=== PATIENT | male | born 1985 | race Caucasian/White ===

== ENCOUNTER 2025-02-28 12:35 | Outpatient (CLI) | payer OTHER, SELFPAY ==
--- NOTE | ~2025-02-28 | XR_ITS ---
XR lumbar spine 2-3V Indication: LBP, RT SIDED SCIATICA pain x 3 weeks, no inj, no surg Comparison: None Findings: The vertebral heights are intact. No fracture or subluxation. The disc heights are intact. Soft tissues unremarkable Impression: No acute abnormality. Reviewed, dictated and finalized at location P. Impression: No acute abnormality.
== END 2025-02-28 12:36 | disposition home or self-care (01) ==
LOC: GOSHIMG 12:37
PROVIDERS: PCP Physician Assistant; Visit Provider Physician Assistant
DX: M54.41 Lumbago with sciatica, right side (principal)
CPT/HCPCS: 72100

== ENCOUNTER 2025-05-07 00:28 | Emergency (ER) | payer OTHER, SELFPAY ==
--- OUTSIDE RECORDS SUMMARY | 2025-05-03 03:45 | XMS_ITS | Continuity of Care Document ---
Author Organization [facility] Address [address] [place] [address] Phone Care Team Providers Care Supervisor [employer] Name Role Phone Christos PT,MPT,ATC, Charly Unavailable Unavai lable Procedures Procedure Date Progress Note Therapeutic Activities Therapeutic Exercise Manual Therapy Therapeutic Activities Therapeutic Exercise Hot or Cold Pack Therapeutic Activities Therapeutic Exercise Therapeutic Activities Therapeutic Exercise Manual Therapy PT Evaluation Moderate Complexity Therapeutic Activities Neuromuscular Re-Ed Therapeutic Activities Neuromuscular Re-Ed Therapeutic Activities Neuromuscular Re-Ed PT Evaluation Moderate Complexity Therapeutic Activities Neuromuscular Re-Ed Advance Directives Directive Yes / No Effective Date File Name No Information Encounters Encounter Description Practice Location Reason(s) For Visit Diagnoses Date Provider Providers Copied on Encounter [facility], [place], [place], [id number], tel:[phone] [place] No Information Christos [place] , [place], [place]. [facility], [place], [place], [id number], tel:[phone] [place] No Information 5 Christos [place] , [place], [place]. Referring Provider: Mandy Juliannedaviseileen, [address], [place], [address]. tel:[phone] [facility], [address], [place], [place], [id number], [place] tel:[phone] Maple No Information 5 Jaswant Pepe. . Referring Provider: Mandy Whitakerdaviseileen, [address], [place], [address]. tel:[phone] [facility], [address], [place], [place], [id number], [place] tel:[phone] [place] No Information 5 Christos Parks. , [place], [place]. Referring Provider: Mandy Julianneuzma, [facility] [facility] [address], [place], [address]. tel:[phone] [facility], [address], [place], [place], [address], [place] tel:[phone] [place] No Information 5 Christos Parks. , [place], [place]. Referring Provider: Mandy Juliannedaviseileen, [address], [place], [address]. tel:[phone] [facility], [place], [place], [address], [place] tel:[phone] [place] No Information 5 Christos Parks. , [place], [place]. Referring Provider: Mandy Juliannedaviseileen, [address], [place], [address]. tel:[phone] [facility], [place], [place], [address], [place] tel:[phone] [place] No Information 5 Christos [place] , [place], [place]. Referring Provider: [facility]. [facility], [place], [place], [address], tel:[phone] [place] No Information 5 Christos ParksMT[address] [facility]. Referring Provider: [facility]. [facility], [place], [place], [id number], tel:[phone] [place] No Information 5 Christ[place], [place], . Referring Provider: [facility]. Family History Family Member Type Diagnosis Age At Onset No Information Payers Payer name Insurance type Covered alliance party [facility] CI [id number] Social History Type Description Quantity Date Captured Comments Sex Male Smoking Status No Information Chief Complaint And Reason For Visit No Information Reason For Referral Reason For Referral No Information History Of Present Illness Encounter Date Complaint History Of Prese nt Illness No Information Functional Status Date Functional Assessmen t No Information Instructions Date Instruction Additional Infor mation No Information Assessments Type Assessment Date No Information Patient Care Teams Name Effective Dates (start - stop) Status Members No Information
[2025-05-07] VITALS (10 sets, daily range): BP systolic 113–155; BP diastolic 50–88; PULSE 56–96; RESP 12–21; TEMP 36.6–37.2; O2SAT 98–100
--- NOTE | ~2025-05-07 | MR_ITS ---
EXAMINATION: MR lumbar spine wo con DATE: 05/07/2025 10:27 INDICATION: Lower lumbar pain. TECHNIQUE: Magnetic resonance imaging (MRI) of the lumbar spine was performed without intravenous contrast. Sequences included sagittal T2-weighted FSE, sagittal T2-weighted FS FSE, sagittal T1-weighted FSE, and axial T2-weighted FSE. COMPARISON: Lumbar spine radiographs 02/28/2025 FINDINGS: There is 12 degrees levoscoliosis of lumbar spine. Vertebral body heights are normal. There is mildly decreased disc height at L4-L5 and severely decreased disc height at L5-S1. The distal spinal cord signal intensity is normal. The conus medullaris is at L1. The following disc levels are spe cifically discussed: L1-L2: The disc does not extend beyond the endplate margin. There is no facet joint osteoarthritis. There is no neural foraminal stenosis. There is no central canal stenosis. L2-L3: The disc does not extend beyond the endplate margin. There is mild left facet joint osteoarthritis. There is no neural foraminal stenosis. There is no central canal stenosis. L3-L4: The disc does not extend beyond the endplate margin. There is mild bilateral facet joint osteoarthritis. There is no neural foraminal stenosis. There is no central canal stenosis. L4-L5: The disc is bulging with superimposed central extrusion. There is mild bilateral facet joint osteoarthritis. There is moderate right and mild left neural foraminal stenosis. There is mild central canal stenosis. There is severe stenosis of right lateral recess and left lateral recess. There is mass effect on the bilateral L5 nerve roots in the lateral recesses. L5-S1: The disc is bulging with superimposed left central extrusion. There is mild right and moderate left facet joint osteoarthritis. There is mild right and moderate left neural foraminal stenosis. There is mild central canal stenosis. IMPRESSION: 1. Severe lower lumbar spondylosis. Reviewed, dictated and finalized at location E. 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
--- NOTE | 2025-05-07 02:42 | ED_ITS ---
HPI - Back Pain/Injury General Chief Complaint: Back Pain/Injury <Javier Brunagopal DO Cruz Last Filed: 05/07/25 07:30> Stated Complaint: low back pain <Javier Brunagopal DO Cruz Last Filed: 05/07/25 07:30> Time Seen by Provider: 05/07/25 02:30 <Javier Diaz - Last Filed: 05/07/25 07:30> Source: patient <Javier Mcfarlandgopal DO Cruz Last Filed: 05/07/25 07:30> Mode of arrival: wheelchair <Javier Mcfarlandgopal - Last Filed: 05/07/25 07:30> Limitations: no limitations <Javier Velardeneo - Last Filed: 05/07/25 07:30> History of Present Illness HPI Narrative: This is a 39-year-old male with history of sciatica who presents to the ED for back pain. Patient states that for the past few months he has been dealing with worsening left lower back pain. He has been seeing his PCP for this and has been getting physical therapy with some mild improvements. However, today he did have worsening symptoms. He does not any specific injury. Denies any new numbness or tingling. Denies saddle anesthesia, bowel incontinence. He does note that he had difficulty starting his urine stream this evening but he does feel like he was able to fully empty. <Javier Diaz DO Cruz Last Filed: 05/07/25 07:30> Related Data Allergies/Adverse Reactions: Allergies Allergy/AdvReac Type Severity Reaction Status Date / Time No Known Allergies Allergy Verified 05/07/25 00:28 <Javier Diaz - Last Filed: 05/07/25 07:30> Review of Systems Review of Systems: Gen.: Denies fevers or chills Eyes: Denies eye pain or visual change ENT: Denies congestion Respiratory: Denies shortness of breath or cough CV: Denies chest pain or palpitations GI: Denies abdominal pain nausea, emesis or diarrhea denies burning, urgency, frequency or hematuria Musculoskeletal: As per HPI Neuro: Denies numbness, tingling, weakness or focal weakness Skin: Denies rash Except as documented, all other systems reviewed and negative <Javier Diaz DO - Last Filed: 05/07/25 07:30> Exam Narrative: APPEARANCE: No acute distress, nontoxic, resting in bed EYES: EOMI HEENT: Normocephalic, atraumatic, OMM RESPIRATORY: No respiratory distress Clear to auscultation bilaterally with no rhonchi wheezing or rales. CARDIOVASCULAR: Regular rate and rhythm without murmurs rubs or gallops. ABDOMINAL: Soft, nontender, nondistended, no rebound or guarding MUSCULOSKELETAl: Moves all extremities. Tenderness to palpation to the left PIIS. No midline lumbar tenderness to palpation, step-off deformities. NEURO: Awake and alert. Following commands, speech normal, no focal deficits SKIN:: Warm, dry. No rashes lesions or abrasions PSYCHIATRIC: Normal affect/mood, <DO Anthony Gordillo Last Filed: 05/07/25 07:30> Course Course Emergency Course: I assumed care of this patient at shift change with pending MRI and disposition. Patient denies for additional lab dose of pain medication which I did before his MRI. I did review the MRI results with the patient. He states he is feeling slightly better. Recommended him to follow with neurosurgery on outpatient basis. Meanwhile take steroids and pain medication as prescribed. <Riley Fitzpatrick MD - Last Filed: 05/07/25 11:17> Vital Signs Vital signs: Vital Signs Temperature 37.2 C 05/07/25 00:55 Pulse Rate 96 05/07/25 00:55 Respiratory Rate 16 05/07/25 00:55 Blood Pressure 151/50 H 05/07/25 00:55 Pulse Oximetry 98 05/07/25 00:55 Oxygen Delivery Room Air 05/07/25 00:55 Temperature 36.6 C 05/07/25 10:55 Pulse Rate 79 05/07/25 10:55 Respiratory Rate 16 05/07/25 10:55 Blood Pressure 113/76 05/07/25 10:55 Pulse Oximetry 100 05/07/25 10:55 Oxygen Delivery Room Air 05/07/25 00:55 <DO Anthony Gordillo Last Filed: 05/07/25 07:30> Vital Signs Temperature 37.2 C 05/07/25 00:55 Pulse Rate 96 05/07/25 00:55 Respiratory Rate 16 05/07/25 00:55 Blood Pressure 151/50 H 05/07/25 00:55 Pulse Oximetry 98 05/07/25 00:55 Oxygen Delivery Room Air 05/07/25 00:55 Temperature 36.6 C 05/07/25 10:55 Pulse Rate 79 05/07/25 10:55 Respiratory Rate 16 05/07/25 10:55 Blood Pressure 113/76 05/07/25 10:55 Pulse Oximetry 100 05/07/25 10:55 Oxygen Delivery Room Air 05/07/25 00:55 <Riley Fitzpatrick MD - Last Filed: 05/07/25 11:17> [facility] MDM Narrative Medical decision making narrative: 39-year-old male Presenting for low back patient. On initial evaluation patient was in mild distress, afebrile, hemodynamic stable. Differentials include but are not limited to: Sciatica, cauda equina, epidural abscess, musculoskeletal strain Notable exam findings: Tenderness to the left lower lumbar paraspinal region. No paresthesias, no muscle weakness Postvoid residual was obtained and it was about 175. This could be concerning for a possible cauda equina. Patient was given Toradol, Lidoderm, [place] and had some mild improvement of her symptoms here and he was given morphine subsequently. Patient will require an MRI for cauda equina rule out. Patient was signed out to Dr. Fitzpatrick pending MRI results. <DO Anthony Gordillo Last Filed: 05/07/25 07:30> Differential Diagnosis Differential Diagnosis: Sciatica, cauda equina, epidural abscess, musculoskeletal strain <Javier Diaz DO - Last Filed: 05/07/25 07:30> Imaging Data Radiologist's impression: ITS Impressions Lumbar Spine MRI 05/07/25 10:35 IMPRESSION: 1. Severe lower lumbar spondylosis. <Javier Diaz DO - Last Filed: 05/07/25 07:30> ITS Impressions Lumbar Spine MRI 05/07/25 10:35 IMPRESSION: 1. Severe lower lumbar spondylosis. <Riley Fitzpatrick MD - Last Filed: 05/07/25 11:17> Discharge Plan Discharge Clinical Impression: Low back pain Qualifiers: Chronicity: acute Back pain laterality: left Sciatica presence: with sciatica Sciatica laterality: sciatica of left side Qualified Code(s): M54.42 - Lumbago with sciatica, left side <Javier Diaz DO - Last Filed: 05/07/25 07:30> Patient Disposition: Still a Patient <Javier Diaz DO - Last Filed: 05/07/25 07:30> Condition: Stable <DO Anthony Gordillo Last Filed: 05/07/25 07:30> Instructions: Acute Low Back Pain (ED) <DO Anthony Gordillo Last Filed: 05/07/25 07:30> Patient Language: Norwegian <DO Anthony Gordillo Last Filed: 05/07/25 07:30> Prescriptions: New methylprednisolone [Medrol (Daquan)] 4 mg tablets,dose pack See Rx Instructions .ROUTE .COMPLEX Qty: 21 0RF Rx Instructions: for 6 days hydrocodone-acetaminophen 5-325 mg tablet 1 tablet PO Q6H PRN (Reason: pain) Qty: 14 0RF cyclobenzaprine 5 mg tablet 5 mg PO TID PRN (Reason: muscle spasm) Qty: 20 0RF <Javier Diaz DO - Last Filed: 05/07/25 07:30> Follow-up/Referrals: Xiomara,JAMAR Galvan [Primary Care Provider, Unknown] <Javier Diza DO - Last Filed: 05/07/25 07:30> Time of Disposition: 11:16 <DO Anthony Gordillo Last Filed: 05/07/25 07:30> 11:16 <Riley Fitzpatrick MD - Last Filed: 05/07/25 11:17>
--- OUTSIDE RECORDS SUMMARY | 2025-05-07 03:06 | XMS_ITS | Data Portability ---
Author Organization ALAYNA ARLINAnais Trujillo Address [address] [facility] [place] [address] Care Team Providers Care Wink Cutter Operator Name Role Phone STEWART JHAVERI Primary Care Provider Unavailab le Assessment No assessment recorded. Plan of Treatment Reminders Order Date Submit Date Provider Last Modified By Organization Details Last Modified Time Details Appointments ANY 15 2024 09:15A M CURTIS Fuentes Not available Not available Not available Lab CBC w/ auto diff 2024 025 [facility], [address] [place] [address] [place], [address], 03/30/2025 07:07:56 CMP, serum or plasma 2024 025 [facility], [address] [place] [address], [address], 03/30/2025 07:07:55 lipid panel, serum 2024 025 [facility], [address] [place] [address] 2, [place], [address], 03/30/2025 07:07:54 PSA, total, serum or plasma 2024 025 [facility], [address] [place] [address] 2, [place], [address], 03/30/2025 07:07:56 HbA1c (hemoglob in A1c), blood 2024 025 [facility], [address] [place] [address] 2, [place], [address], 03/30/2025 07:07:55 lipid panel, serum 2023 024 [email or web address] [facility], [address] [facility] 2, [place], [address], 09/10/2024 09:38:09 Referral None recorded. Procedures None recorded. Surgeries None recorded. Imaging XR, lumbosacr al spine, 2 or 3 view 2024 025 [facility], [address] [place] [address], [facility] [address], [place], [address], 02/28/2025 15:04:26 CT, coronary calcium score 2023 024 [facility], [address], [place], [address], 04/07/2024 10:56:30 Medication Orders Medrol (Daquan) 4 mg tablets in a dose pack 2024 025 [facility] [address], [address] [place], [address], 02/28/2025 12:07:21 cyclobenz aprine 10 mg tablet 2024 025 [facility] [address], [address] [place], [address], 02/28/2025 12:07:23 ezetimibe 10 mg tablet 2023 024 [facility], [address] [place] [address], [facility] [address], [place], [id number], 01/22/2024 09:42:46 Patient TargetsNo targets recorded. Patient InstructionsNo instructions recorded. Reason for Referral None Reported. Results Created Date Observation Date Name Description Value Unit Range Abnormal Flag Note LastModifiedBy Organization Detail LastModifiedTime 03/29/20 25 03/30/2025 LIPID PANEL cholesterol, total 250 mg/dL 100-19 9 above high normal Not Available [facility] ([facility]) [address], [place], [address], 03/30/2025 07:07:54 03/29/20 25 03/30/2025 LIPID PANEL triglyceride s 154 mg/dL 0-149 above high normal Not Available [facility] ([facility]) [address] [place], [address], 03/30/2025 07:07:54 03/29/20 25 03/30/2025 LIPID PANEL HDL cholesterol 54 mg/dL >39 Not Available [facility]) [address] [place], [address], 03/30/2025 07:07:54 03/29/20 25 03/30/2025 LIPID PANEL VLDL cholesterol jose e 28 mg/dL 5-40 Not Available [facility] ([facility]) [address] [place], [address], 03/30/2025 07:07:54 03/29/20 25 03/30/2025 LIPID PANEL LDL chol calc ([facility]) 168 mg/dL 0-99 above high normal Not Available [facility] ([facility]) [address] [place], [address], 03/30/2025 07:07:54 03/29/20 25 03/30/2025 CMP14 +EGFR glucose 78 mg/dL 70-99 Not Available [facility] ([facility]) [address] [place], [address], 03/30/2025 07:07:55 03/29/20 25 03/30/2025 CMP14 +EGFR BUN 14 mg/dL 6-24 Not Available [facility] ([facility]) [address] [place], [address], 03/30/2025 07:07:55 03/29/20 25 03/30/2025 CMP14 +EGFR creatinine 0.97 mg/dL 0.76-1 .27 Not Available [facility] ([facility]) [address] [place], [address], 03/30/2025 07:07:55 03/29/20 25 03/30/2025 CMP14 +EGFR eGFR 101 mL/mi n/1.7 3 >59 Not Available [facility] ([facility]) [address] [facility], [place], [address], 03/30/2025 07:07:55 03/29/20 25 03/30/2025 CMP14 +EGFR BUN/creatini ne ratio 14 9-20 Not Available [facility] ([facility]) [address] [facility], [place], [address], 03/30/2025 07:07:55 03/29/20 25 03/30/2025 CMP14 +EGFR sodium 144 mmol/ L 134-14 4 Not Available [facility] ([facility]) [address] [facility], [place], [address], 03/30/2025 07:07:55 03/29/20 25 03/30/2025 CMP14 +EGFR potassium 4.6 mmol/ L 3.5-5. 2 Not Available [facility] ([facility]) [address] [facility], [place], [address], 03/30/2025 07:07:55 03/29/20 25 03/30/2025 CMP14 +EGFR chloride 102 mmol/ L 96-106 Not Available [facility] ([facility]) [address] [facility], [place], [address], 03/30/2025 07:07:55 03/29/20 25 03/30/2025 CMP14 +EGFR carbon dioxide, total 27 mmol/ L 20-29 Not Available [facility] ([facility]) [address] [facility], [place], [address], 03/30/2025 07:07:55 03/29/20 25 03/30/2025 CMP14 +EGFR calcium 9.9 mg/dL 8.7-10 .2 Not Available [facility] ([facility]) [address] [facility], [place], [address], 03/30/2025 07:07:55 03/29/2003/30/2025 CMP14 +EGFR protein, total 7.5 g/dL 6.0-8. 5 Not Available [facility] ([facility]) [address] [facility], [place], [address], 03/30/2025 07:07:55 03/29/2003/30/2025 CMP14 +EGFR albumin 4.6 g/dL 4.1-5. 1 Not Available [facility] ([facility]) [address] [facility], [place], [address], 03/30/2025 07:07:55 03/29/2003/30/2025 CMP14 +EGFR globulin, total 2.9 g/dL 1.5-4. 5 Not Available [facility] ([facility]) [address] [facility], [place], [address], 03/30/2025 07:07:55 03/29/2003/30/2025 CMP14 +EGFR bilirubin, total 0.2 mg/dL 0.0-1. 2 Not Available [facility] ([facility]) [address] [facility], [place], [address], 03/30/2025 07:07:55 03/29/2003/30/2025 CMP14 +EGFR alkaline phosphatase 71 IU/L 47-123 Not Available [facility] ([facility]) [address] [facility], [place], [address], 03/30/2025 07:07:55 03/29/2003/30/2025 CMP14 +EGFR AST (SGOT) 18 IU/L 0-40 Not Available [facility] ([facility]) [address] [facility], [place], [address], 03/30/2025 07:07:55 03/29/2003/3003/30/2025 CMP14 +EGFR ALT (SGPT) 20 IU/L 0-44 Not Available [facility] ([facility]) [address] [facility], [place], [address], 03/30/2025 07:07:55 03/29/20 25 03/30/2025 HEMOG LOBIN A1C hemoglobin A1C 5.6 % 4.8-5. 6 Predi abete s: 5.7 - 6.4 Diabe farrah: >6.4 Glyce boone contr ol for adult s with diabe farrah: <7.0 Not Available [facility] ([facility]) [address] [facility], [place], [address], 03/30/2025 07:07:55 03/29/20 25 03/29/2025 CBC WITH DIFFE RENTI AL/PL ATELE T WBC 10.2 x10e3 /uL 3.4-10 .8 Not Available [facility] ([facility]) [address] [place], [address], 03/30/2025 07:07:56 03/29/20 25 03/29/2025 CBC WITH DIFFE RENTI AL/PL ATELE T RBC 5.14 x10e6 /uL 4.14-5 .80 Not Available [facility] ([facility]) [address] [place], [address], 03/30/2025 07:07:56 03/29/20 25 03/29/2025 CBC WITH DIFFE RENTI AL/PL ATELE T hemoglobin 15.6 g/dL 13.0-1 7.7 Not Available [facility] ([facility]) [address] [place], [address], 03/30/2025 07:07:56 03/29/20 25 03/29/2025 CBC WITH DIFFE RENTI AL/PL ATELE T hematocrit 46.5 % 37.5-5 1.0 Not Available [facility] ([facility]) [address] [place], [address], 03/30/2025 07:07:56 03/29/20 25 03/29/2025 CBC WITH DIFFE RENTI AL/PL ATELE T MCV 91 fL 79-97 Not Available [facility] ([facility]) [address] [facility], [place], [address], 03/30/2025 07:07:56 03/29/20 25 03/29/2025 CBC WITH DIFFE RENTI AL/PL ATELE T MCH 30.4 pg 26.6-3 3.0 Not Available [facility] ([facility]) [address] [facility], [place], [address], 03/30/2025 07:07:56 03/29/20 25 03/29/2025 CBC WITH DIFFE RENTI AL/PL ATELE T MCHC 33.5 g/dL 31.5-3 5.7 Not Available [facility] ([facility]) [address] [facility], [place], [address], 03/30/2025 07:07:56 03/29/20 25 03/29/2025 CBC WITH DIFFE RENTI AL/PL ATELE T RDW 13.4 % 11.6-1 5.4 Not Available [facility] ([facility]) [address] [facility], [place], [address], 03/30/2025 07:07:56 03/29/20 25 03/29/2025 CBC WITH DIFFE RENTI AL/PL ATELE T platelets 318 x10e3 /uL 150-45 0 Not Available [facility] ([facility]) [address] [facility], [place], [address], 03/30/2025 07:07:56 03/29/20 25 03/29/2025 CBC WITH DIFFE RENTI AL/PL ATELE T neutrophils 47 % notest ab. Not Available [facility] ([facility]) [address] [facility], [place], [address], 03/30/2025 07:07:56 03/29/20 25 03/29/2025 CBC WITH DIFFE RENTI AL/PL ATELE T lymphs 43 % notest ab. Not Available [facility] ([facility]) [address] [facility], [place], [address], 03/30/2025 07:07:56 03/29/20 25 03/29/2025 CBC WITH DIFFE RENTI AL/PL ATELE T monocytes 7 % notest ab. Not Available [facility] ([facility]) [address] [facility], [place], [address], 03/30/2025 07:07:56 03/29/2003/29/2025 CBC WITH DIFFE RENTI AL/PL ATELE T eos 1 % notest ab. Not Available [facility] ([facility]) [address] [facility], [place], [address], 03/30/2025 07:07:56 03/29/20 25 03/29/2025 CBC WITH DIFFE RENTI AL/PL ATELE T basos 1 % notest ab. Not Available [facility] ([facility]) [address] [facility], [place], [address], 03/30/2025 07:07:56 03/29/20 25 03/29/2025 CBC WITH DIFFE RENTI AL/PL ATELE T neutrophils (absolute) 4.9 x10e3 /uL 1.4-7. 0 Not Available [facility] ([facility]) [address] [facility], [place], [address], 03/30/2025 07:07:56 03/29/20 25 03/29/2025 CBC WITH DIFFE RENTI AL/PL ATELE T lymphs (absolute) 4.4 x10e3 /uL 0.7-3. 1 above high normal Not Available [facility] ([facility]) [address] [facility], [place], [address], 03/30/2025 07:07:56 11/04/20 25 03/29/2025 CBC WITH DIFFE RENTI AL/PL ATELE T monocytes(ab solute) 0.7 x10e3 /uL 0.1-0. 9 Not Available [facility] ([facility]) [address] [facility], [place], [address], 03/30/2025 07:07:56 03/29/20 25 03/29/2025 CBC WITH DIFFE RENTI AL/PL ATELE T eos (absolute) 0.1 x10e3 /uL 0.0-0. 4 Not Available [facility] ([facility]) [address] [place], [address], 03/30/2025 07:07:56 03/29/20 25 03/29/2025 CBC WITH DIFFE RENTI AL/PL ATELE T baso (absolute) 0.1 x10e3 /uL 0.0-0. 2 Not Available [facility] ([facility]) [address] [facility], [place], [address], 03/30/2025 07:07:56 03/29/20 25 03/29/2025 CBC WITH DIFFE RENTI AL/PL ATELE T immature granulocytes 1 % notest ab. Not Available [facility] ([facility]) [address] [place], [address], 03/30/2025 07:07:56 03/29/20 25 03/29/2025 CBC WITH DIFFE RENTI AL/PL ATELE T immature grans (abs) 0.1 x10e3 /uL 0.0-0. 1 Not Available [facility] ([facility]) [address] [place], [address], 03/30/2025 07:07:56 03/29/20 25 03/30/2025 PROST ATE-S PECIF IC AG prostate specific Ag 0.6 NG/mL 0.0-4. 0 Nomi ECLIA metho dolog y. Accor ding to the Ameri can Urolo gical Assoc iatio n, Serum PSA shoul d decre ase and remai n at undet ectab le level s after radic al prost atect dontrell. The AUA defin es bioch emica l recur rence as an initi al PSA value 0.2 ng/mL or great er follo wed by a subse quent confi rmato ry PSA value 0.2 ng/mL or great er. Value s obtai avi with diffe rent assay metho ds or kits canno t be used inter yee eably . Resul ts canno t be inter prete d as absol [place] evide nce of the prese nce or absen ce of [facility] alize disea se. Not Available [facility] ([facility]) [address] [facility], [place], [address], 03/30/2025 07:07:56 04/07/20 24 04/05/2024 CT, coron whit calci um score No observ ation record ed. [facility] [address], [place], [address], 04/16/2024 14:09:20 02/29/20 25 02/28/2025 XR, lumbo sacra l spine , 2 or 3 view No observ ation record ed. [facility] [address] [facility] [address], [place], [address], 03/02/2025 16:42:56 Result Notes None recorded. Problems Name Problem SNOMED Code Status Onset Date Resolution Date Notes Provider Name and Address Organization Details Recorded Time Body mass index 20-24 - normal 052433402 Active 2023 Keysha Wang MA null, [place] - [facility] 4 09:16:44 Hyperlipidemia 81881713 Active 2023 CURTIS Fuentes Attn: Vu lares,[address], [place], [address], [facility] - [facility] 4 09:28:21 Family history of hyperlipidemia 947621201 Active 2023 CURTIS Fuentes Attn: Vu lares,[address], [place], [address], [place] - [facility] 4 00:46:02 Long-term drug therapy Active 2023 CURTIS Fuentes Attn: Vu lares,[address], [place], [address], [place] - [facility] 4 00:46:05 Normal weight 47691487 Active 2024 CURTIS Fuentes Attn: Vu lares,[address], [place], [address], [place] - [facility] 5 11:50:44 Acute back pain with sciatica 389152440 Active 2024 CURTIS Fuentes Attn: Vu lares,[address], [place], [address], [facility] - [facility] 5 20:44:34 Problem Notes None recorded. Procedures Surgical History Date Name Laterality Status Provider Name and Address Organization Details Recorded Time vasectomy completed Keysha Wang MA [place] - [facility] 01/22/2024 09:15:44 Imaging Results None recorded. Procedure Notes None recorded. Medical Equipment None Reported. Allergies No known drug allergies Medications Name Sig Start Date Stop Date Status Note LastModified by Organization Details LastModified Time cyclobenzaprin e 10 mg tablet TAKE 1 TABLET BY MOUTH THREE TIMES DAILY active Not Available Not Available No t Available meloxicam 15 mg tablet Take 1 tablet every day by oral route as directed. 2024 active Not Available Not Available Not Avai lable methylpredniso lone 4 mg tablets in a dose pack TAKE BY MOUTH DIRECTED ON INSIDE OF PACKAGE active Not Available Not Available No t Available ezetimibe 10 mg tablet TAKE 1 TABLET BY MOUTH DAILY active Not Available Not Available No t Available Vitals Date Recorded Systolic And Diastolic Provider Name and Address Organization Details Last Updated DateTime 01/22/2024 108/80 mm[Hg] CURTIS Fuentes Attn: Accounting,[address], [place], [address], [place] - [facility] 01/22/2024 09:40:37 Date Recorded Body weight Respiratory rate Body mass index (BMI) Body height Oxygen saturation Heart rate Systolic And Diastolic Provider Name and Address Organization Details Last Updated DateTime 4 84219.9 3 g 20 /min 23.3 kg/m2 180.34 cm 99 % 64 /min 128/78 mm[Hg] Keysha Wang MA [facility] 4 09:17:53 Date Recorded Systolic And Diastolic Provider Name and Address Organization Details Last Updated DateTime 02/28/2025 110/70 mm[Hg] CURTIS Fuentes Attn: Accounting,[address], [place], [address], [facility] 02/28/2025 12:06:33 Date Recorded Body weight Body mass index (BMI) Body height Oxygen saturation Heart rate Respiratory rate Systolic And Diastolic Provider Name and Address Organization Details Last Updated DateTime 5 71472.7 3 g 23.9 kg/m2 180.34 cm 100 % 60 /min 20 /min 120/76 mm[Hg] Keysha Wang MA [facility] 5 11:38:22 Social History Question Answer Notes LastModified by Zelgorizat ion Details LastModified Time Tobacco Smoking Status Never Smoker Keysha Wang MA null, [facility] 01/22/2024 09:15:15 Do You Have An Advance Directive? No Information not available 01/22/2024 Are You Blind Or Do You Have Difficulty Seeing? No Glasses Information not available 01/22/2024 What Is Your Level Of Caffeine Consumption? Occasional Coffee 2x A Day Information not available 01/22/2024 In The 14 Days Before Symptom Onset, Have You Had Close Contact With A Laboratory-confir med COVID-19 While That Case Was Ill? No Information not available 01/22/2024 In The 14 Days Before Symptom Onset, Have You Had Close Contact With A Person Who Is Under Investigation For COVID-19 While That Person Was Ill? No Information not available 01/22/2024 Have You Been To An Area Known To Be High Risk For COVID-19? No Information not available 01/22/2024 Are You Deaf Or Do You Have Serious Difficulty Hearing? No Information not available 01/22/2024 What Type Of Diet Are You Following? REGULAR Information not available 01/22/2024 Are There Any Guns Present In Your Home? No Information not available 01/22/2024 What Was The Date Of Your Most Recent Tobacco Screening? 02/28/2025 Information not available 02/28/2025 Do You Use Your Seat Belt Or Car Seat Routinely? Yes Information not available 01/22/2024 Do You Have Smoke And Carbon Monoxide Detectors In Your Home? Yes Information not available 01/22/2024 Do You Use Sunscreen Routinely? Yes Information not available 01/22/2024 Has Tobacco Cessation Counseling Been Provided? No Information not available 01/22/2024 Sex: Male Functional Status Question Answer Note LastModified by Organizat ion Details LastModified Time Do you use any illicit or recreational drugs? No Information not available 01/22/2024 Do you or have you ever used any other forms of tobacco or nicotine? No Information not available 01/22/2024 What is your level of alcohol consumption? Occasional weekly Information not available 01/22/2024 Are you currently employed? Yes Information not available 02/28/2025 Are you able to care for yourself independently? Yes Information not available 01/22/2024 What is your exercise level? Occasional Information not available 01/22/2024 Mental Status None recorded. Family History Relationship Description Onset Age of this Age Resolved Age Notes LastModified by Organization Details LastModified Time Father Hypertensive disorder [email or web address] Not available 2023 09:13:55 Mother Hypercholest erolemia recent ly starte d in 1-2 years [email or web address] Not available 01/22/2024 09:14:42 Medical History Condition Response Blood Clots N Anemia N Heart Failure N High Blood Pressure N Atrial Fibrillation N Muscle, Joint, or Bone Problems N Kidney or Bladder Problems N Hepatitis N High Cholesterol Y Immunizations Vaccine Type Date Status Note Provider Nam e and Address Organization Details Recorded Time Influenza, split virus, quadrivalent, PF 03/06/2020 completed Not Available [facility] 5 11:16:27 COVID-19, mRNA, LNP-S, PF, 30 mcg/0.3 mL dose 07/03/2020 completed Not Available [facility] 11:16:27 COVID-19, mRNA, LNP-S, PF, 30 mcg/0.3 mL dose 07/24/2020 completed Not Available [facility] 5 11:16:27 COVID-19, mRNA, LNP-S, PF, 100 mcg/0.5mL dose or 50 mcg/0.25mL dose 05/01/2021 completed Not Available [facility] 11:16:27 Influenza, split virus, trivalent, PF 02/28/2025 completed Lisa ndiaye [facility] 03/15/2025 17:21:39 Past Encounters Encounter ID Performer Location Encounter Start Date Encounter Closed Date Diagnosis/Indication Diagnosis SNOMED-CT Code Diagnosis ICD10 Code Diagnosis IMO Codes Diagnosis Note [id number] Tim Segal MD [facility] [employer] [address] [place] [id number] 01/22/2024 09:03:16 01/22/2024 10:08:23 Body mass index 20-24 - normal 148715054 Z68.23 BMI is 23.3 Hyperlipidemia 61157422 E78.5 Restart Zetia 10 mg daily as he had stopped it on his own but LDL rebounded and went up to the 170 range again. We will have him restart the Zetia as stated and repeat fasting lipids in April. Patient would also be interested in a CT coronary calcium score, order has been given Family his tory of hyperlipidemia 907269105 Z83.49 Family history of high cholestero l reviewed Adult [facility] th examination 003660369 Z00.01 Annual wellness exam completed Long-term drug therapy 884548348 Z79.899 All labs are up-to-date [id number] Tim Segal MD [facility] [employer] [address] [place] [id number] 02/28/2025 11:14:45 02/28/2025 12:40:57 Normal weight 23831284 Z68.23 7606670649 Normal BMI Requires i nfluenza virus vaccination 378482030 Z23 3255391 Flu vaccine given today Hyperlipidemia 77529488 E78.5 Continue Zetia 10 mg daily check updated fasting lipid panel Long-term drug therapy 197467250 Z79.899 CBC and CMP ordered Diabetes m ellitus screening 032051153 Z13.1 A1c screening due Adult heal th examination 954421844 Z00.01 Annual wellness exam completed Family his tory of hyperlipidemia 569092416 Z83.49 Family history of high cholestero l reviewed Screening for malignant neoplasm of prostate 630776432 Z12.5 651566 Annual baseline PSA ordered Acute back pain with sciatica 847823757 M54.41 86071368 Send for x-ray of lumbosacra l spine, start Medrol Dosepak as directed and Flexeril 10 mg 3 times a day as needed Health Concerns Section Related Observation LastModified by Organization Detai ls LastModified Time None Recorded Concern Status LastModified by Organization Details LastModified Time None Recorded Advance Directives Directive N: Payers Insurance Date Sequence Insurance Name Policy Number Policy Alvares Covered Member ID Alvares Member ID Guarantor Name 03/21/2025 1 [facility] [id number] Steven Dowling [id number] Steven Dowling Notes Date Note Type Note Provider Name and Address Organization Details Recorded Time 4 text/html HyperlipidemiaReported by PatientHPIFor type of hyperlipidemia, patient reportscombined. For duration, patient reportschronic. For control, patient reportsworseningandnot at goal. For current therapy, patient reportslast cholesterol level: (272),last ldl level: (208),last triglyceride level: (81), andlast hdl level: (51)(this was off zetia, he had stopped on his own and continued diet and exercise). For compliance, patient reportscompliant,compliant with diet, andexercises. For complications, patient reportsno coronary artery disease,no peripheral artery disease, andno cardiovascular disease.pt realizes that he needs to be on zetia 10mg continually. fam hx present. CURTIS Fuentes Attn: Accounting,[address], [place], [address], [facility] - [facility] 01/26/2024 00:47:28 5 text/html HyperlipidemiaReported by PatientHPIFor type of hyperlipidemia, patient reportscombined. For duration, patient reportschronic. For control, patient reportsworseningandnot at goal. For current therapy, patient reportslast cholesterol level: (272),last ldl level: (208),last triglyceride level: (81), andlast hdl level: (51)(this was off zetia, he had stopped on his own and continued diet and exercise). For compliance, patient reportscompliant,compliant with diet, andexercises. For complications, patient reportsno coronary artery disease,no peripheral artery disease, andno cardiovascular disease. Back PainReported by PatientHPIFor location, patient reportspain radiating to the buttocksandpain radiating to the legs(right side; flare up in the last 3 weeks.). For quality, patient reportssharp. For severity, patient reportssame(slight improvement .). For duration, patient reportsacute. For onset/timing, patient reportsrecurrent episode. For context, patient reportsoveruseandprior back problems(doing yardwork triggered it this time.). For alleviating factors, patient reportsrelieved by changing position. For associated symptoms, patient reportsno fever,no weak limbs,no numbness of the legs/feet,no tingling,no incontinence, andno shortness of breath. For aggravating factors, (standing is the worst). CURTIS Fuentes Attn: Accounting,[address] [place], [address], [facility] 03/13/2025 20:45:15
--- OUTSIDE RECORDS SUMMARY | 2025-05-07 03:06 | XMS_ITS | Data Portability ---
Author Organization [facility] [employer], Main Office Address [address] [place] [address] Assessment No assessment recorded. Plan of Treatment Reminders Order Date Submit Date Provider Last Modified By Organization Details Last Modified Time Details Appointments None recorded . Lab CBC w/ auto diff 023 05/28/19 24 christine Braun, 2022 Jeff Savage, [address], [place], [address], 4 09:04:46 CMP, serum or plasma 023 05/28/19 24 christine Braun, 2022 Jeff Savage, [address], [place], [address], 4 09:04:46 TSH + free T4, serum 023 05/28/19 24 christine Braun, 2022 Jeff Savage, [address], [place], [address], 4 09:04:47 lipid panel, serum 023 05/28/19 24 lindsey Braun, 2022 Jeff Savage, [address], [place], [address], 4 09:04:46 HbA1c (hemoglo bin A1c), blood 023 05/28/19 24 christine Braun 2022 Jeff Savage, [address], [place], [address], 4 09:04:46 Referral None recorded . Procedures None recorded . Surgeries None recorded . Imaging None recorded . Medication Orders None recorded . Patient TargetsNo targets recorded. Patient InstructionsNo instructions recorded. Reason for Referral None Reported. Results Created Date Observation Date Name Description Value Unit Range Abnormal Flag Note LastModifiedBy Organization Detail LastModifiedTime 03/06/2003/07/2021 HEMOG LOBIN A1C hemoglobin A1C 5.4 % 4.8-5. 6 Predi abete s: 5.7 - 6.4 Diabe farrah: >6.4 Glyce boone contr ol for adult s with diabe farrah: <7.0 Not Available [facility] ([facility]) [address] [place], [address], 03/07/2021 07:11:19 03/06/20 21 03/07/2021 LIPID PANEL WITH LDL/H DL RATIO cholesterol, total 213 mg/dL 100-19 9 above high normal Not Available [facility] ([facility]) [address] [place], [address], 03/07/2021 07:11:18 03/06/2003/07/2021 LIPID PANEL WITH LDL/H DL RATIO triglyceride s 134 mg/dL 0-149 Not Available [facility] ([facility]) [address] [place], [address], 03/07/2021 07:11:18 03/06/20 21 03/07/2021 LIPID PANEL WITH LDL/H DL RATIO HDL cholesterol 48 mg/dL >39 Not Available [facility] ([facility]) [address] [place], [address], 03/07/2021 07:11:18 03/06/20 21 03/07/2021 LIPID PANEL WITH LDL/H DL RATIO VLDL cholesterol jose e 24 mg/dL 5-40 Not Available [facility] ([facility]) [address] [place], [address], 03/07/2021 07:11:18 03/06/20 21 03/07/2021 LIPID PANEL WITH LDL/H DL RATIO LDL chol calc ([facility]) 141 mg/dL 0-99 above high normal Not Available [facility] ([facility]) [address], [place], [address], 03/07/2021 07:11:18 03/06/20 21 03/07/2021 LIPID PANEL WITH LDL/H DL RATIO 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 6 LDL/H DL Ratio Men Women 1/2 Avg.R isk 1.0 1.5 Avg.R isk 3.6 3.2 2X Avg.R isk 6.2 5.0 3X Avg.R isk 8.0 6.1 Not Available [facility] ([facility]) [address] [place], [address], 03/07/2021 07:11:18 03/06/20 21 03/07/2021 URINA LYSIS , ROUTI NE specific gravity 1.017 1.005- 1.030 Not Available [facility] ([facility]) [address] [place], [address], 03/07/2021 07:11:17 03/06/20 21 03/07/2021 URINA LYSIS , ROUTI NE pH 5.5 5.0-7. 5 Not Available [facility] ([facility]) [address] [place], [address], 03/07/2021 07:11:17 03/06/20 21 03/07/2021 URINA LYSIS , ROUTI NE urine-color yellow yellow Not Available [facility] ([facility]) [address] [place], [address], 03/07/2021 07:11:17 03/06/20 21 03/07/2021 URINA LYSIS , ROUTI NE appearance clear clear Not Available [facility] ([facility]) [address], [place], [address], 03/07/2021 07:11:17 03/06/2003/07/2021 URINA LYSIS , ROUTI NE WBC esterase negati ve negati ve Not Available [facility] ([facility]) [address], [place], [address], 03/07/2021 07:11:17 03/06/2003/07/2021 URINA LYSIS , ROUTI NE protein negati ve negati ve/tra ce Not Available [facility] ([facility]) [address] [place], [address], 03/07/2021 07:11:17 03/06/2003/07/2021 URINA LYSIS , ROUTI NE glucose negati ve negati ve Not Available [facility] ([facility]) [address] [place], [address], 03/07/2021 07:11:17 03/06/2003/07/2021 URINA LYSIS , ROUTI NE ketones negati ve negati ve Not Available [facility] ([facility]) [address], [place], [address], 03/07/2021 07:11:17 03/06/2003/07/2021 URINA LYSIS , ROUTI NE occult blood negati ve negati ve Not Available [facility] ([facility]) [address] [place], [address], 03/07/2021 07:11:17 03/06/2003/07/2021 URINA LYSIS , ROUTI NE bilirubin negati ve negati ve Not Available [facility] ([facility]) [address] [place], [address], 03/07/2021 07:11:17 03/06/2003/07/2021 URINA LYSIS , ROUTI NE urobilinogen ,semi-qn 0.2 mg/dL 0.2-1. 0 Not Available [facility] ([facility]) [address] [place], [address], 03/07/2021 07:11:17 03/06/2003/07/2021 URINA LYSIS , ROUTI NE nitrite, urine negati ve negati ve Not Available [facility] ([facility]) [address] [place], [address], 03/07/2021 07:11:17 03/06/2003/07/2021 URINA LYSIS , ROUTI NE microscopic examination commen t Micro scopi c not indic ated and not perfo rmed. Not Available [facility] ([facility]) [address], [place], [address], 03/07/2021 07:11:17 03/06/2003/07/2021 COMP. METAB OLIC PANEL (14) glucose 85 mg/dL 65-99 Not Available [facility] ([facility]) [address] [place], [address], 03/07/2021 07:11:17 03/06/20 21 03/07/2021 COMP. METAB OLIC PANEL (14) BUN 15 mg/dL 6-20 Not Available [facility] ([facility]) [address] [place], [address], 03/07/2021 07:11:17 03/06/20 21 03/07/2021 COMP. METAB OLIC PANEL (14) creatinine 1.00 mg/dL 0.76-1 .27 Not Available [facility] ([facility]) [address] [place], [address], 03/07/2021 07:11:17 03/06/20 21 03/07/2021 COMP. METAB OLIC PANEL (14) eGFR if nonafricn AM 96 mL/mi n/1.7 3 >59 Not Available [facility] ([facility]) [address], [place], [address], 03/07/2021 07:11:17 03/06/20 21 03/07/2021 COMP. METAB OLIC PANEL (14) eGFR if africn AM 111 mL/mi n/1.7 3 >59 Lab indra curre ntly repor ts eGFR in compl iance with the curre nt recom menda tions of the [facility] ation . [facility] will updat e repor ting as new guide lines are publi shed from the NKF-A SN Task force . Not Available [facility] ([facility]) [address], [place], [address], 03/07/2021 07:11:17 03/06/20 21 03/07/2021 COMP. METAB OLIC PANEL (14) BUN/creatini ne ratio 15 9-20 Not Available [facility] ([facility]) [address], [place], [address], 03/07/2021 07:11:17 03/06/20 21 03/07/2021 COMP. METAB OLIC PANEL (14) sodium 144 mmol/ L 134-14 4 Not Available [facility] ([facility]) [address], [place], [address], 03/07/2021 07:11:17 03/06/20 21 03/07/2021 COMP. METAB OLIC PANEL (14) potassium 4.2 mmol/ L 3.5-5. 2 Not Available [facility] ([facility]) [address] [place], [address], 03/07/2021 07:11:17 03/06/20 21 03/07/2021 COMP. METAB OLIC PANEL (14) chloride 105 mmol/ L 96-106 Not Available [facility] ([facility]) [address] [place], [address], 03/07/2021 07:11:17 03/06/20 21 03/07/2021 COMP. METAB OLIC PANEL (14) carbon dioxide, total 24 mmol/ L 20-29 Not Available [facility] ([facility]) [address], [place], [address], 03/07/2021 07:11:17 03/06/20 21 03/07/2021 COMP. METAB OLIC PANEL (14) calcium 9.3 mg/dL 8.7-10 .2 Not Available [facility] ([facility]) [address], [place], [address], 03/07/2021 07:11:17 03/06/2003/07/2021 COMP. METAB OLIC PANEL (14) protein, total 7.2 g/dL 6.0-8. 5 Not Available [facility] ([facility]) [address], [place], [address], 03/07/2021 07:11:17 03/06/20 21 03/07/2021 COMP. METAB OLIC PANEL (14) albumin 4.6 g/dL 4.0-5. 0 Not Available [facility] ([facility]) [address], [place], [address], 03/07/2021 07:11:17 03/06/20 21 03/07/2021 COMP. METAB OLIC PANEL (14) globulin, total 2.6 g/dL 1.5-4. 5 Not Available [facility] ([facility]) [address], [place], [address], 03/07/2021 07:11:17 03/06/2003/07/2021 COMP. METAB OLIC PANEL (14) A/G ratio 1.8 1.2-2. 2 Not Available [facility] ([facility]) [address], [place], [address], 03/07/2021 07:11:17 03/06/20 21 03/07/2021 COMP. METAB OLIC PANEL (14) bilirubin, total 0.4 mg/dL 0.0-1. 2 Not Available [facility] ([facility]) [address], [place], [address], 03/07/2021 07:11:17 03/06/2003/07/2021 COMP. METAB OLIC PANEL (14) alkaline phosphatase 62 IU/L 44-121 Ple ase note refer ence inter kelsy yee e Not Available [facility] ([facility]) [address], [place], [address], 03/07/2021 07:11:17 03/06/2003/07/2021 COMP. METAB OLIC PANEL (14) AST (SGOT) 22 IU/L 0-40 Not Available [facility] ([facility]) [address], [place], [address], 03/07/2021 07:11:17 03/06/2003/07/2021 COMP. METAB OLIC PANEL (14) ALT (SGPT) 24 IU/L 0-44 Not Available [facility] ([facility]) [address], [place], [address], 03/07/2021 07:11:17 03/06/2003/07/2021 CBC WITH DIFFE RENTI AL/PL ATELE T WBC 4.7 x10e3 /uL 3.4-10 .8 Not Available [facility] ([facility]) [address] [place], [address], 03/07/2021 07:11:16 03/06/2003/07/2021 CBC WITH DIFFE RENTI AL/PL ATELE T RBC 4.80 x10e6 /uL 4.14-5 .80 Not Available [facility] ([facility]) [address], [place], [address], 03/07/2021 07:11:16 03/06/20 21 03/07/2021 CBC WITH DIFFE RENTI AL/PL ATELE T hemoglobin 14.2 g/dL 13.0-1 7.7 Not Available [facility] ([facility]) [address] [place], [address], 03/07/2021 07:11:16 03/06/20 21 03/07/2021 CBC WITH DIFFE RENTI AL/PL ATELE T hematocrit 43.9 % 37.5-5 1.0 Not Available [facility] ([facility]) [address], [place], [address], 03/07/2021 07:11:16 03/06/2003/07/2021 CBC WITH DIFFE RENTI AL/PL ATELE T MCV 92 fL 79-97 Not Available [facility] ([facility]) [address], [place], [address], 03/07/2021 07:11:16 03/06/2003/07/2021 CBC WITH DIFFE RENTI AL/PL ATELE T MCH 29.6 pg 26.6-3 3.0 Not Available [facility] ([facility]) [address], [place], [address], 03/07/2021 07:11:16 03/06/2003/07/2021 CBC WITH DIFFE RENTI AL/PL ATELE T MCHC 32.3 g/dL 31.5-3 5.7 Not Available [facility] ([facility]) [address] [place], [address], 03/07/2021 07:11:16 03/06/2003/07/2021 CBC WITH DIFFE RENTI AL/PL ATELE T RDW 13.0 % 11.6-1 5.4 Not Available [facility] ([facility]) [address] [place], [address], 03/07/2021 07:11:16 03/06/20 21 03/07/2021 CBC WITH DIFFE RENTI AL/PL ATELE T platelets 228 x10e3 /uL 150-45 0 Not Available [facility] ([facility]) [address], [place], [address], 03/07/2021 07:11:16 03/06/2003/07/2021 CBC WITH DIFFE RENTI AL/PL ATELE T neutrophils 40 % not estab. Not Available [facility] ([facility]) [address], [place], [address], 03/07/2021 07:11:16 03/06/2003/07/2021 CBC WITH DIFFE RENTI AL/PL ATELE T lymphs 48 % not estab. Not Available [facility] ([facility]) [address], [place], [address], 03/07/2021 07:11:16 03/06/2003/07/2021 CBC WITH DIFFE RENTI AL/PL ATELE T monocytes 8 % not estab. Not Available [facility] ([facility]) [address], [place], [address], 03/07/2021 07:11:16 03/06/2003/07/2021 CBC WITH DIFFE RENTI AL/PL ATELE T eos 3 % not estab. Not Available [facility] ([facility]) [address], [place], [address], 03/07/2021 07:11:16 03/06/2003/07/2021 CBC WITH DIFFE RENTI AL/PL ATELE T basos 1 % not estab. 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 0 Not Available [facility] ([facility]) [address], [place], [address], 03/07/2021 07:11:16 03/06/20 21 03/07/2021 CBC WITH DIFFE RENTI AL/PL ATELE T lymphs (absolute) 2.3 x10e3 /uL 0.7-3. 1 Not Available [facility] ([facility]) [address] [place], [address], 03/07/2021 07:11:16 03/06/20 21 03/07/2021 CBC WITH DIFFE RENTI AL/PL ATELE T monocytes(ab solute) 0.4 x10e3 /uL 0.1-0. 9 Not Available [facility] ([facility]) [address] [place], [address], 03/07/2021 07:11:16 03/06/2003/07/2021 CBC WITH DIFFE RENTI AL/PL ATELE T eos (absolute) 0.1 x10e3 /uL 0.0-0. 4 Not Available [facility] ([facility]) [address], [place], [address], 03/07/2021 07:11:16 03/06/20 21 03/07/2021 CBC WITH DIFFE RENTI AL/PL ATELE T baso (absolute) 0.0 x10e3 /uL 0.0-0. 2 Not Available [facility] ([facility]) [address] [place], [address], 03/07/2021 07:11:16 03/06/20 21 03/07/2021 CBC WITH DIFFE RENTI AL/PL ATELE T immature granulocytes 0 % not estab. Not Available [facility] ([facility]) [address], [place], [address], 03/07/2021 07:11:16 03/06/2003/07/2021 CBC WITH DIFFE RENTI AL/PL ATELE T immature grans (abs) 0.0 x10e3 /uL 0.0-0. 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 Problems Name Problem SNOMED Code Status Onset Date Resolution Date Notes Provider Name and Address Organization Details Recorded Time Hyperlipidemi a 77946045 Active 2017 Not Available [employer] 3 19:46:36 Vertigo [id number] Active 2021 Not Available [facility] 3 19:46:36 Problem Notes None recorded. Procedures Surgical History Date Name Laterality Status Provider Name and Address Organization Details Recorded Time Vasectomy completed Not Available [place] [address] 07/24/2022 19:45:47 Imaging Results None recorded. Procedure Notes None recorded. Medical Equipment None Reported. Medications Name Sig Start Date Stop Date Status Note LastModified by Organization Details LastModified Time cyclobenzap rine 10 mg tablet take half-one tab po tid PRN active Not Available Not Available No t Available tramadol 50 mg tablet 04/01 completed Not Available Not Available Not Available methylpredn isolone 4 mg tablets in a dose pack use as directed 04/03 completed Not Available Not Available Not Available ezetimibe 10 mg tablet TAKE 1 TABLET BY MOUTH DAILY 2022 active Not Available Not Available Not Avai lable rosuvastati n 5 mg tablet Take 1 tablet every day by oral route in the evening. 04/06 completed Not Available Not Available Not Available WelChol 3.75 gram oral powder packet Take 1 packet every day by oral route. 04/04 completed Not Available Not Available Not Available Fluzone Quad (PF) 60 mcg (15 mcg x 4)/0.5 mL IM syringe active Not Available Not Available N ot Available Vitals Date Recorded Body mass index (BMI) Body height Oxygen saturation Heart rate Body temperature Body weight Systolic And Diastolic Provider Name and Address Organization Details Last Updated DateTime 2 24.3 kg/m2 180.34 cm 98 % 61 /min 97.4 [degF] 91916.0 7 g 122/66 mm[Hg] Not Available [facility] 3 19:46:01 Date Recorded Body mass index (BMI) Body height Oxygen saturation Heart rate Body temperature Body weight Systolic And Diastolic Provider Name and Address Organization Details Last Updated DateTime 1 23.7 kg/m2 180.34 cm 98 % 62 /min 97.4 [degF] 62497.7 g 110/60 mm[Hg] Not Available [facility] 3 19:46:01 Date Recorded Body mass index (BMI) Provider Name and Address Organization Details Last Updated DateTime 04/08/2023 22.9 kg/m2 CURTIS Fuentes [address], [facility] [address], [place], [address], [facility] [employer] [facility] 04/20/2023 14:56:39 Date Recorded Body height Body temperature Body weight Heart rate Oxygen saturation Systolic And Diastolic Provider Name and Address Organization Details Last Updated DateTime 3 180.34 cm 98 [degF] 96668.1 5 g 67 /min 99 % 112/66 mm[Hg] Teri Martínez RN [facility] [employer] [facility] 3 10:48:05 Date Recorded Body height Oxygen saturation Heart rate Body temperature Body weight Systolic And Diastolic Provider Name and Address Organization Details Last Updated DateTime 2 180.34 cm 98 % 78 /min 97.1 [degF] 70589.2 6 g 110/62 mm[Hg] Not Available [facility] 3 19:46:01 Social History Question Answer Notes LastModified by Organizat ion Details LastModified Time Tobacco Smoking Status Never Smoker Not Available [facility] 07/24/2022 19:45:37 Do You Have An Advance Directive? No [id number] Information not available 07/24/2022 Do You Wear A Helmet When Biking? No [id number].[id number] 2547 Information not available 07/24/2022 What Is Your Level Of Caffeine Consumption? Moderate [id number].[id number] 6498 Information not available 07/24/2022 In The 14 Days Before Symptom Onset, Have You Had Close Contact With A Laboratory-confirm ed COVID-19 While That Case Was Ill? No [id number].[id number] 3562 Information not available 07/24/2022 In The 14 Days Before Symptom Onset, Have You Had Close Contact With A Person Who Is Under Investigation For COVID-19 While That Person Was Ill? No [id number] Information not available 07/24/2022 What Type Of Diet Are You Following? REGULAR MIGRATION.518210 6007 Information not available 07/24/2022 What Is The Highest Grade Or Level Of School You Have Completed Or The Highest Degree You Have Received? [id number] MIGRATION.[id number] 5205 Information not available 07/24/2022 Have There Been Any Changes To Your Family Or Social Situation? No [id number].[id number] 1268 Information not available 07/24/2022 Are There Any Guns Present In Your Home? Yes MIGRATION.420020 9958 Information not available 07/24/2022 Do You Use Insect Repellent Routinely? Yes MIGRATION.235884 2145 Information not available 07/24/2022 Do You Have A Medical Power Of Seat Builder? No MIGRATION.685033 2263 Information not available 07/24/2022 Have You Ever Been Counseled For Unhealthy Alcohol Use? No MIGRATION.725394 2424 Information not available 07/24/2022 What Is Your Relationship Status? MIGRATION.636137 8844 Information not available 07/24/2022 Do You Use Your Seat Belt Or Car Seat Routinely? Yes MIGRATION.938315 7717 Information not available 07/24/2022 Do You Have Smoke And Carbon Monoxide Detectors In Your Home? Yes MIGRATION.039388 7736 Information not available 07/24/2022 Are You Passively Exposed To Smoke? No MIGRATION.075682 0494 Information not available 07/24/2022 Are There Any Smokers In Your House? No MIGRATION.773794 4020 Information not available 07/24/2022 Do You Use Sunscreen Routinely? Yes MIGRATION.743583 6753 Information not available 07/24/2022 Has Tobacco Cessation Counseling Been Provided? No MIGRATION.930370 3151 Information not available 07/24/2022 Have You Recently Traveled Abroad? No MIGRATION.927574 8947 Information not available 07/24/2022 Do You Have Any Dietary Restrictions? No MIGRATION.766550 3850 Information not available 07/24/2022 Sex: Unknown Functional Status Question Answer Note LastModified by [employer] ion Details LastModified Time Do you use any illicit or recreational drugs? No MIGRATION.988697 1561 Information not available 07/24/2022 Do you or have you ever used any other forms of tobacco or nicotine? No MIGRATION.002497 3411 Information not available 07/24/2022 What is your level of alcohol consumption? 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 Moderate MIGRATION.923513 0572 Information not available 07/24/2022 Mental Status Question Answer Note LastModified by [employer] ion Details LastModified Time Do you feel stressed (tense, restless, nervous, or anxious, or unable to sleep at night)? [id number] [id number].[id number] Information not available 07/24/2022 Family History Relationship Description Onset Age of this Age Resolved Age Notes LastModified by Organization Details LastModified Time Father Hypertensive disorder [id number] Not available 07/24/2022 19:45:48 Mother Malignant neoplasm of skin MIGRATION.[id number] Not available 07/24/2022 19:45:48 Mother Hyperlipidem ia [id number] Not available 07/24/2022 19:45:48 Maternal Grandfather Malignant neoplasm of brain MIGRATION.936 [id number] Not available 07/24/2022 19:45:48 Maternal Grandmother Aneurysm MIGRATION.[id number] Not available 07/24/2022 19:45:48 Medical History Condition Response HIGH CHOLESTEROL / HYPERLIPIDEMIA Y Immunizations Vaccine Type Date Status Note Provider Nam e and Address Organization Details Recorded Time Influenza, split virus, quadrivalent, preservative 0 completed Not Available [facility] 07/24/2022 19:47:18 tetanus toxoid, unspecified formulation 0 completed Not Available [facility] 07/24/2022 19:47:18 Influenza, split virus, quadrivalent, PF 1 completed Not Available [facility] 07/24/2022 19:47:19 Past Encounters Encounter ID Performer Location Encounter Start Date Encounter Closed Date Diagnosis/Indication Diagnosis SNOMED-CT Code Diagnosis ICD10 Code Diagnosis IMO Codes Diagnosis Note [id number] CURTIS Fuentes [facility] [place] [address] [place] [address] 04/04/2021 00:00:00 04/24/2021 15:50:50 [id number] [facility] [place] [address] [place] [address] 04/02/2022 00:00:00 04/24/2022 22:19:24 [id number] CURTIS Fuentes [facility] [place] [address] [place] [address] 04/09/2022 00:00:00 04/24/2022 01:27:39 [id number] CURTIS Fuentes [facility] [place] [address] [place] [address] 04/08/2023 10:43:07 04/08/2023 11:27:47 Adult health examination [id number] Z00.00 well exam completed. next labs are due in May fasting. Hyperlipidemia 60420634 E78.5 stable on zetia 10mg daily Diabetes m ellitus screening [id number] Z13.1 screening a1c due in may Long-term drug therapy 998090928 Z79.899 routine labs are due in may Health Concerns Section Related Observation LastModified by Organization Detai ls LastModified Time None Recorded Concern Status LastModified by Organization Details LastModified Time None Recorded Advance Directives Directive N: Payers Insurance Date Sequence Insurance Name Policy Number Policy Alvares Covered Member ID Alvares Member ID Guarantor Name 04/21/2023 1 [facility] [id number] Steven Dowling [id number] Steven Dowling Notes Date Note Type Note Provider Name and Address Organization Details Recorded Time 3 text/html HyperlipidemiaReported by PatientHPIFor control, patient reportsusually well controlled,improving, andat goal. For compliance, patient reportscompliant,compliant with diet, andexercises. For complications, patient reportsno coronary artery disease,no peripheral artery disease, andno cardiovascular disease. wellness CURTIS Fuentes [address] [facility], [facility] [address], [place], [address], [facility] [employer] 04/20/2023 14:58:55
--- OUTSIDE RECORDS SUMMARY | 2025-05-07 03:06 | XMS_ITS | Continuity of Care Document ---
Author Organization [place] - [facility], [facility] [place] Address [address] [place] [address] Care Team Providers Care Client Support Manager Name Role Phone STEWART JHAVERI Primary Care Provider Unavailab le Assessment No assessment recorded. Plan of Treatment Reminders Order Date Submit Date Provider Last Modified By Organization Details Last Modified Time Details Appointments ANY 15 2024 09:15A M CURTIS Fuentes Not available Not available Not available Lab CBC w/ auto diff 2024 025 [facility], [address] [place] [address], [id number], 03/30/2025 07:07:56 CMP, serum or plasma 2024 025 [facility], [address] [place] [address], [id number], 03/30/2025 07:07:55 lipid panel, serum 2024 025 [facility], [address] [place] [address], [id number], 03/30/2025 07:07:54 PSA, total, serum or plasma 2024 025 [facility], [address] [place] [address], [id number], 03/30/2025 07:07:56 HbA1c (hemoglob in A1c), blood 2024 025 [facility], [address] [place] [address] 2, [place], [address], 03/30/2025 07:07:55 Referral None recorded. Procedures None recorded. Surgeries None recorded. Imaging XR, lumbosacr al spine, 2 or 3 view 2024 [facility], [facility], [address] [address], [place], [address], 02/28/2025 15:04:26 Medication Orders Medrol (Daquan) 4 mg tablets in a dose pack 2024 [facility] [address] [place], [address], 02/28/2025 12:07:21 cyclobenz aprine 10 mg tablet 2024 [facility] [address] [place], [address], 02/28/2025 12:07:23 Patient TargetsNo targets recorded. Patient InstructionsNo instructions recorded. Reason for Referral None Reported. Results Created Date Observation Date Name Description Value Unit Range Abnormal Flag Note LastModifiedBy Organization Detail LastModifiedTime 03/29/2003/30/2025 LIPID PANEL cholesterol, total 250 mg/dL 100-19 9 above high normal Not Available [facility] ([facility]) [address] [place], [address], 03/30/2025 07:07:54 03/29/2003/30/2025 LIPID PANEL triglyceride s 154 mg/dL 0-149 above high normal Not Available [facility] ([facility]) [address] [place], [address], 03/30/2025 07:07:54 03/29/2003/30/2025 LIPID PANEL HDL cholesterol 54 mg/dL >39 Not Available [facility] ([facility]) [address] [place], [address], 03/30/2025 07:07:54 03/29/20 25 03/30/2025 LIPID PANEL VLDL cholesterol jose e 28 mg/dL 5-40 Not Available [facility] ([facility]) [address] [facility], [place], [address], 03/30/2025 07:07:54 03/29/20 25 03/30/2025 LIPID PANEL LDL chol calc ([facility]) 168 mg/dL 0-99 above high normal Not Available [facility] ([facility]) [address] [facility], [place], [address], 03/30/2025 07:07:54 03/29/20 25 03/30/2025 CMP14 +EGFR glucose 78 mg/dL 70-99 Not Available [facility] ([facility]) [address] [facility], [place], [address], 03/30/2025 07:07:55 03/29/20 25 03/30/2025 CMP14 +EGFR BUN 14 mg/dL 6-24 Not Available [facility] ([facility]) [address] [facility], [place], [address], 03/30/2025 07:07:55 03/29/20 25 03/30/2025 CMP14 +EGFR creatinine 0.97 mg/dL 0.76-1 .27 Not Available [facility] ([facility]) [address] [facility], [place], [address], 03/30/2025 07:07:55 03/29/20 25 03/30/2025 CMP14 +EGFR eGFR 101 mL/mi n/1.7 3 >59 Not Available [facility] ([facility]) [address] [facility], [place], [address], 03/30/2025 07:07:55 03/29/20 25 03/30/2025 CMP14 +EGFR BUN/creatini ne ratio 14 9-20 Not Available [facility] ([facility]) [address] [facility], [place], [address], 03/30/2025 07:07:55 11/09/12 2403/30/2025 CMP14 +EGFR sodium 144 mmol/ L 134-14 4 Not Available [facility] ([facility]) [address] [place], [address], 03/30/2025 07:07:55 03/29/2003/30/2025 CMP14 +EGFR potassium 4.6 mmol/ L 3.5-5. 2 Not Available [facility] ([facility]) [address] [place], [address], 03/30/2025 07:07:55 03/29/2003/30/2025 CMP14 +EGFR chloride 102 mmol/ L 96-106 Not Available [facility] ([facility]) [address] [place], [address], 03/30/2025 07:07:55 03/29/2003/30/2025 CMP14 +EGFR carbon dioxide, total 27 mmol/ L 20-29 Not Available [facility] ([facility]) [address] [place], [address], 03/30/2025 07:07:55 03/29/2003/30/2025 CMP14 +EGFR calcium 9.9 mg/dL 8.7-10 .2 Not Available [facility] ([facility]) [address] [place], [address], 03/30/2025 07:07:55 03/29/2003/30/2025 CMP14 +EGFR protein, total 7.5 g/dL 6.0-8. 5 Not Available [facility] ([facility]) [address] [place], [address], 03/30/2025 07:07:55 03/29/2003/30/2025 CMP14 +EGFR albumin 4.6 g/dL 4.1-5. 1 Not Available [facility] ([facility]) [address] [place], [address], 03/30/2025 07:07:55 03/29/2003/30/2025 CMP14 +EGFR globulin, total 2.9 g/dL 1.5-4. 5 Not Available [facility] ([facility]) [address] [facility], [place], [address], 03/30/2025 07:07:55 03/29/2003/30/2025 CMP14 +EGFR bilirubin, total 0.2 mg/dL 0.0-1. 2 Not Available [facility] ([facility]) [address] [facility] [place], [address], 03/30/2025 07:07:55 03/29/2003/30/2025 CMP14 +EGFR alkaline phosphatase 71 IU/L 47-123 Not Available [facility] ([facility]) [address] [facility], [place], [address], 03/30/2025 07:07:55 03/29/2003/30/2025 CMP14 +EGFR AST (SGOT) 18 IU/L 0-40 Not Available [facility] ([facility]) [address] [place], [address], 03/30/2025 07:07:55 03/29/2003/30/2025 CMP14 +EGFR ALT (SGPT) 20 IU/L 0-44 Not Available [facility] ([facility]) [address] [place], [address], 03/30/2025 07:07:55 03/29/2003/30/2025 HEMOG LOBIN A1C hemoglobin A1C 5.6 % 4.8-5. 6 Predi abete s: 5.7 - 6.4 Diabe farrah: >6.4 Glyce boone contr ol for adult s with diabe farrah: <7.0 Not Available [facility] ([facility]) [address] [place], [address], 03/30/2025 07:07:55 03/29/20 25 03/29/2025 CBC WITH DIFFE RENTI AL/PL ATELE T WBC 10.2 x10e3 /uL 3.4-10 .8 Not Available [facility] ([facility]) [address] [facility], [place], [address], 03/30/2025 07:07:56 03/29/20 25 03/29/2025 CBC WITH DIFFE RENTI AL/PL ATELE T RBC 5.14 x10e6 /uL 4.14-5 .80 Not Available [facility] ([facility]) [address] [facility], [place], [address], 03/30/2025 07:07:56 03/29/20 25 03/29/2025 CBC WITH DIFFE RENTI AL/PL ATELE T hemoglobin 15.6 g/dL 13.0-1 7.7 Not Available [facility] ([facility]) [address] [facility], [place], [address], 03/30/2025 07:07:56 03/29/20 25 03/29/2025 CBC WITH DIFFE RENTI AL/PL ATELE T hematocrit 46.5 % 37.5-5 1.0 Not Available [facility] ([facility]) [address] [facility], [place], [address], 03/30/2025 07:07:56 03/29/20 25 03/29/2025 CBC WITH DIFFE RENTI AL/PL ATELE T MCV 91 fL 79-97 Not Available [facility] ([facility]) [address] [facility], [place], [address], 03/30/2025 07:07:56 03/29/20 25 03/29/2025 CBC WITH DIFFE RENTI AL/PL ATELE T MCH 30.4 pg 26.6-3 3.0 Not Available [facility] ([facility]) [address] [facility], [place], [address], 03/30/2025 07:07:56 03/29/20 25 03/29/2025 CBC WITH DIFFE RENTI AL/PL ATELE T MCHC 33.5 g/dL 31.5-3 5.7 Not Available [facility] ([facility]) [address] [facility], [place], [address], 03/30/2025 07:07:56 03/29/20 25 03/29/2025 CBC WITH DIFFE RENTI AL/PL ATELE T RDW 13.4 % 11.6-1 5.4 Not Available [facility] ([facility]) [address] [facility], [place], [address], 03/30/2025 07:07:56 03/29/20 25 03/29/2025 CBC WITH DIFFE RENTI AL/PL ATELE T platelets 318 x10e3 /uL 150-45 0 Not Available [facility] ([facility]) [address] [facility], [place], [address], 03/30/2025 07:07:56 03/29/20 25 03/29/2025 CBC WITH DIFFE RENTI AL/PL ATELE T neutrophils 47 % notest ab. Not Available [facility] ([facility]) [address] [facility], [place], [address], 03/30/2025 07:07:56 03/29/20 25 03/29/2025 CBC WITH DIFFE RENTI AL/PL ATELE T lymphs 43 % notest ab. Not Available [facility] ([facility]) [address] [facility], [place], [address], 03/30/2025 07:07:56 03/29/20 25 03/29/2025 CBC WITH DIFFE RENTI AL/PL ATELE T monocytes 7 % notest ab. Not Available [facility] ([facility]) [address] [facility], [place], [address], 03/30/2025 07:07:56 03/29/20 25 03/29/2025 CBC WITH DIFFE RENTI AL/PL ATELE T eos 1 % notest ab. Not Available [facility] ([facility]) [address] [facility], [place], [address], 03/30/2025 07:07:56 03/29/20 25 03/29/2025 CBC WITH DIFFE RENTI AL/PL ATELE T basos 1 % notest ab. Not Available [facility] ([facility]) [address] [facility], [place], [address], 03/30/2025 07:07:56 03/29/20 25 03/29/2025 CBC WITH DIFFE RENTI AL/PL ATELE T neutrophils (absolute) 4.9 x10e3 /uL 1.4-7. 0 Not Available [facility] ([facility]) [address] [facility], [place], [address], 03/30/2025 07:07:56 03/29/20 25 03/29/2025 CBC WITH DIFFE RENTI AL/PL ATELE T lymphs (absolute) 4.4 x10e3 /uL 0.7-3. 1 above high normal Not Available [facility] ([facility]) [address] [facility], [place], [address], 03/30/2025 07:07:56 03/29/20 25 03/29/2025 CBC WITH DIFFE RENTI AL/PL ATELE T monocytes(ab solute) 0.7 x10e3 /uL 0.1-0. 9 Not Available [facility] ([facility]) [address] [place], [address], 03/30/2025 07:07:56 03/29/20 25 03/29/2025 CBC WITH DIFFE RENTI AL/PL ATELE T eos (absolute) 0.1 x10e3 /uL 0.0-0. 4 Not Available [facility] ([facility]) [address] [place], [address], 03/30/2025 07:07:56 03/29/20 25 03/29/2025 CBC WITH DIFFE RENTI AL/PL ATELE T baso (absolute) 0.1 x10e3 /uL 0.0-0. 2 Not Available [facility] ([facility]) [address] [facility], [place], [address], 03/30/2025 07:07:56 03/29/20 25 03/29/2025 CBC WITH DIFFE RENTI AL/PL ATELE T immature granulocytes 1 % notest ab. Not Available [facility] ([facility]) [address] [facility], [place], [address], 03/30/2025 07:07:56 03/29/20 25 03/29/2025 CBC WITH DIFFE RENTI AL/PL ATELE T immature grans (abs) 0.1 x10e3 /uL 0.0-0. 1 Not Available [facility] ([facility]) [address] [facility], [place], [address], 03/30/2025 07:07:56 03/29/20 25 03/30/2025 PROST ATE-S [...] t be inter prete d as absol izzy evide nce of the prese nce or absen ce of [facility] disea se. Not Available [facility] ([facility]) [address] [facility], [place], [address], 03/30/2025 07:07:56 02/29/20 25 02/28/2025 XR, lumbo sacra l spine , 2 or 3 view No observ ation record ed. [facility] [address] [facility] [address] [facility] [address], [place], [address], 03/02/2025 16:42:56 Result Notes None recorded. Problems Name Problem SNOMED Code Status Onset Date Resolution Date Notes Provider Name and Address Organization Details Recorded Time Body mass index 20-24 - normal 602582078 Active 2023 Keysha Wang MA null, [place] - [facility] 4 09:16:44 Hyperlipidemia 59413688 Active 2023 CURTIS Fuentes Attn: Accountin g,[address] [place], [address], [place] [facility] 4 09:28:21 Family history of hyperlipidemia 454905876 Active 2023 CURTIS Fuentes Attn: Accountin g[address] [place], [address], [place] [facility] 4 00:46:02 Long-term drug therapy Active 2023 CURTIS Fuentes Attn: Accountin g[address] [place], [address], [place] [facility] 4 00:46:05 Normal weight 48171825 Active 2024 CURTIS Fuentes Attn: Accountin g,[address] [place], [address], [place] [facility] 5 11:50:44 Acute back pain with sciatica 321885940 Active 2024 CURTIS Fuentes Attn: Olvin[address] [place], [address], [place] [facility] 5 20:44:34 Problem Notes None recorded. Procedures Surgical History Date Name Laterality Status Provider Name and Address Organization Details Recorded Time vasectomy completed Keysha Wang MA [facility] 01/22/2024 09:15:44 Imaging Results None recorded. [...] 02/28/2025 110/70 mm[Hg] CURTIS Fuentes Attn: Accounting[address] [place], [address], [facility] 02/28/2025 12:06:33 Date Recorded Body weight Body mass index (BMI) Body height Oxygen saturation Heart rate Respiratory rate Systolic And Diastolic Provider Name and Address Organization Details Last Updated DateTime 81686.7 3 g 23.9 kg/m2 180.34 cm 100 % 60 /min 20 /min 120/76 mm[Hg] Keysha Wang MA [facility] 11:38:22 Social History Question Answer Notes LastModified by Organizat ion Details LastModified Time Tobacco Smoking Status Never Smoker Keysha Wang MA null, [facility] 01/22/2024 09:15:15 Do You Have An Advance Directive? No Information not available 01/22/2024 Are You Blind Or Do You Have Difficulty Seeing? No Glasses Information not available 01/22/2024 What Is Your Level Of Caffeine Consumption? Occasional Coffee 2x A Day Information not available 01/22/2024 In The 14 Days Before Symptom Onset, Have You Had Close Contact With A [facility] COVID-19 While That Case Was Ill? No [...] available 01/22/2024 09:14:42 Medical History Condition Response Atrial Fibrillation N High Blood Pressure N Blood Clots N Muscle, Joint, or Bone Problems N High Cholesterol Y Kidney or Bladder Problems N Anemia N Hepatitis N Heart Failure N Immunizations Vaccine Type Date Status Note Provider Nam e and Address Organization Details Recorded Time Influenza, split virus, quadrivalent, PF 03/06/2020 completed Not Available [facility] 11:16:27 COVID-19, mRNA, LNP-S, PF, 30 mcg/0.3 mL dose 07/03/2020 completed Not Available [facility] 11:16:27 COVID-19, mRNA, LNP-S, PF, 30 mcg/0.3 mL dose 07/24/2020 completed Not Available [facility] 11:16:27 COVID-19, mRNA, LNP-S, PF, 100 mcg/0.5mL dose or 50 mcg/0.25mL dose 05/01/2021 completed Not Available [facility] 11:16:27 Influenza, split virus, trivalent, PF 02/28/2025 completed Lisa Murphy [facility] 03/15/2025 17:21:39 Past Encounters Encounter ID Performer Location Encounter Start Date Encounter Closed Date Diagnosis/Indication Diagnosis SNOMED-CT Code Diagnosis ICD10 Code Diagnosis IMO Codes Diagnosis Note [id number] Tim Segal MD [facility] [address] [place] [address] 02/28/2025 11:14:45 02/28/2025 12:40:57 Normal weight 77956806 Z68.23 2061072339 Normal BMI Requires i nfluenza virus vaccination 570244600 Z23 2949714 Flu vaccine given today Hyperlipidemia 72257830 E78.5 Continue Zetia 10 mg daily check updated fasting lipid panel Long-term drug therapy 338370865 Z79.899 CBC and CMP ordered Diabetes m ellitus screening 508725856 Z13.1 A1c screening due Adult heal th examination 742008450 Z00.01 Annual wellness exam completed Family his tory of hyperlipidemia 911273046 Z83.49 Family history of high cholestero l reviewed Screening for malignant neoplasm of prostate 069902987 Z12.5 230196 Annual baseline PSA ordered Acute back pain with sciatica 052903277 M54.41 62351341 Send for x-ray of lumbosacra l spine, start Medrol Dosepak as directed and Flexeril 10 mg 3 times a day as needed Health Concerns Section Related Observation LastModified by Organization Detai ls LastModified Time None Recorded Concern Status LastModified by Organization Details LastModified Time None Recorded Payers Encounter Date Sequence Insurance Name Policy Number Policy Alvares Covered Member ID Alvares Member ID Guarantor Name 02/28/2025 1 [facility] [id number] Steven Dowling [id number] Steven Dowling Notes Date Note Type Note Provider Name and Address Organization Details Recorded Time 5 text/html HyperlipidemiaReported by PatientHPIFor type of [...] the worst). CURTIS Fuentes Attn: Accounting[address] [place], [address], [facility] 03/13/2025 20:45:15
[2025-05-07] MEDS: HYDROcodone/acetaminophen (*CRX) 5-325 MG TABLET 1 TAB PO (03:30)
[2025-05-07] MEDS: KETOROLAC 30 MG/ML VIAL (*BKC) IM (03:31)
[2025-05-07] MEDS: LIDOCAINE 5% PATCH 1 PATCH TRANSDERM (03:31)
[2025-05-07] MEDS: MORPHINE SULFATE (*CRX) 4 MG/ML INJ IM (05:07)
== END 2025-05-07 11:44 | disposition home or self-care (01) ==
PROVIDERS: Emergency Provider Family Medicine; PCP Physician Assistant
DX: M54.42 Lumbago with sciatica, left side (principal)
CPT/HCPCS: 72148; 96372; 99284; A9270; J1885; J2270; J7512